=== PATIENT | female | born 1960 ===

== ENCOUNTER → 2018-07-10 | Outpatient (CLI) | payer OTHER ==
[2018-07-10 14:16] LABS: Thyroid Stimulating Hormone 1.965 uIU/mL (0.360-4.800)
[2018-07-10 14:17] LABS: Troponin I <0.017 ng/mL (0.000-0.040)
== END | disposition home or self-care (01) ==
LOC: LAB SHORT 13:51 → LAB EV 13:51
PROVIDERS: Physician Assistant
DX: R00.0 Tachycardia, unspecified (principal)
CPT/HCPCS: 84443; 84484